=== PATIENT | male | born 1995 | race Caucasian/White ===

== ENCOUNTER → 2019-01-23 13:57 | Outpatient (CLI) | payer OTHER, SELFPAY ==
[2019-01-23 14:16] LABS: Basophils % 0.7 % (0.1-2.0); Eosinophils # 0.1 K/mm3 (0.0-0.4); Eosinophils % 2.5 % (0.1-12.0); Hematocrit 46.7 % (42.0-52.0); Hemoglobin 15.4 g/dL (14.1-18.0); Lymphocytes # 2.1 K/mm3 (0.7-4.5); Lymphocytes % 37.4 % (10-50); Mean Corpuscular HGB Conc 32.9 g/dL (31.8-35.4); Mean Corpuscular Hemoglobin 29.4 pg (27.0-31.2); Mean Corpuscular Volume 89.5 fl (80-94); Monocytes # 0.6 K/mm3 (0.1-1.0); Monocytes % 10.4 % (1.7-9.3); Neutrophils # 2.7 K/mm3 (1.8-7.8); Platelet Count 183 K/mm3 (142-424); Red Blood Count 5.22 M/mm3 (4.60-6.20); Red Cell Distribution Width 13.1 % (11.5-17.5); White Blood Count 5.5 K/mm3 (4.8-10.8)
[2019-01-23 15:02] LABS: Alanine Aminotransferase 69 U/L (12-78); Albumin Level 3.9 gm/dL (3.4-5.0); Alkaline Phosphatase 84 U/L (46-116); Anion Gap 17.1 mEq/L (5-15); Aspartate Amino Transferase 41 U/L (15-37); Bilirubin,Total 0.5 mg/dL (0.2-1.0); Blood Urea Nitrogen 14 mg/dL (7-18); Calcium 9.3 mg/dL (8.5-10.1); Carbon Dioxide 23 mmol/L (21.0-32.0); Chloride 102 mmol/L (98-107); Chol/HDL Ratio 4.8 (1-3.5); Cholesterol 184 mg/dL (140-200); Creatinine,Serum 0.82 mg/dL (0.70-1.30); Estimated Glomerular Filt Rate 116 ml/min (>60); Free T4 (Free Thyroxine) 0.86 ng/dl (0.76-1.46); GFR (African American) 141 ML/MIN (>60); Glucose 81 mg/dL (74-106); HDL Cholesterol 38 mg/dL (27-67); LDL Cholesterol 110 mg/dL (0-130); Potassium 4.1 mmoL/L (3.5-5.1); Sodium 138 mmol/L (136-145); Thyroid Stimulating Hormone 6.48 uIU/ml (0.358-3.740); Total Protein,Serum 7.9 gm/dL (6.4-8.2); Triglycerides 178 mg/dL (30-200); VLDL Cholesterol 36 mg/dL (0-40)
[2019-01-24 07:16] LABS: Hep A Ab, IgM Negative (Negative); Hepatitis B Core Antibody IgM Negative (Negative); Hepatitis B Surface Antigen Negative (Negative)
[2019-01-24 18:04] LABS: Hepatitis C Antibody <0.1 s/co ratio (0.0-0.9); Vitamin D 25 Hydroxy 16.3 ng/mL (30.0-100.0)
== END ==
PROVIDERS: Visit Provider Emergency Medicine
DX: G80.9 Cerebral palsy, unspecified (principal)
CPT/HCPCS: 80053; 80061; 80074; 82652; 84439; 84443; 85025

== ENCOUNTER → 2020-02-09 09:34 | Outpatient (CLI) | payer MEDICAID, SELFPAY ==
[2020-02-09 10:06] LABS: Basophils # 0.1 K/mm3 (0-0.2); Eosinophils # 0.2 K/mm3 (0.0-0.4); Eosinophils % 3.1 % (0.1-12.0); Hematocrit 48.4 % (42.0-52.0); Hemoglobin 16.5 g/dL (14.1-18.0); Lymphocytes # 2.4 K/mm3 (0.7-4.5); Lymphocytes % 46.7 % (10-50); Mean Corpuscular HGB Conc 34.1 g/dL (31.8-35.4); Mean Corpuscular Hemoglobin 32.6 pg (27.0-31.2); Mean Corpuscular Volume 95.4 fl (80-94); Mean Platelet Volume 9.1 fl (7.4-10.4); Monocytes # 0.4 K/mm3 (0.1-1.0); Monocytes % 7.2 % (1.7-9.3); Neutrophils # 2.2 K/mm3 (1.8-7.8); Platelet Count 164 K/mm3 (142-424); Red Blood Count 5.07 M/mm3 (4.60-6.20); Red Cell Distribution Width 12.7 % (11.5-17.5); White Blood Count 5.2 K/mm3 (4.8-10.8)
[2020-02-09 10:28] LABS: Chloride 107 mmol/L (98-107)
[2020-02-09 10:29] LABS: Potassium 4.4 mmoL/L (3.5-5.1); Sodium 138 mmol/L (136-145)
[2020-02-09 10:31] LABS: Alanine Aminotransferase 17 U/L (12-78); Aspartate Amino Transferase 20 U/L (17-59); Blood Urea Nitrogen 10 mg/dl (9-20); Estimated Glomerular Filt Rate 139 ml/min (>60); GFR (African American) 168 ML/MIN (>60)
[2020-02-09 10:32] LABS: Albumin Level 4.2 g/dl (3.5-5.0); Albumin/Globulin Ratio 1.4 (1.1-1.8); Alkaline Phosphatase 69 U/L (38-126); Anion Gap 9.4 mEq/L (5-15); Bilirubin,Total 0.5 mg/dl (0.2-1.3); Calcium 9.6 mg/dl (8.4-10.2); Carbon Dioxide 26 mmol/L (22.0-30.0); Glucose 75 mg/dl (74-100); Total Protein,Serum 7.2 g/dl (6.3-8.2)
[2020-02-09 10:37] LABS: Valproic Acid, (Depakene) 66.2 ug/ml (50-100)
[2020-02-09 11:02] LABS: Thyroid Stimulating Hormone 2.06 uIU/mL (0.465-4.68)
[2020-02-15 10:23] LABS: 1,25 Dihydroxy Vitamin D 86 pg/mL (.); 1,25-Dihydroxy, Vitamin D-2 58 pg/mL (.); 1,25-Dihydroxy, Vitamin D-3 28 pg/mL (.)
== END ==
PROVIDERS: Visit Provider Specialist
DX: G40.909 Epilepsy, unspecified, not intractable, without status epilepticus (principal); R79.89 Other specified abnormal findings of blood chemistry; E55.9 Vitamin D deficiency, unspecified; Z79.899 Other long term (current) drug therapy
CPT/HCPCS: 36415; 80053; 80164; 82652; 84443; 85025

== ENCOUNTER → 2020-02-26 10:00 | Outpatient (CLI) | payer MEDICAID, SELFPAY ==
--- NOTE | 2020-02-26 10:10 | MR_ITS ---
PROCEDURE: MR HEAD/BRAIN WO CON CLINICAL INDICATION: seizures Frequent seizures, Pt states a couple months. Started at age 18, Pt also has cerebral palsy COMPARISON: No exams were available for comparison TECHNIQUE: Routine multiplanar multi echo sequences are performed without gadolinium enhancement. 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 There is no evidence of acute infarction midline shift or mass effect. No intracranial hemorrhage apparent. The cerebellopontine angles, cerebellum, and brainstem have an unremarkable appearance. There is some mild atrophy of the andrea and cerebral peduncles on the right. The pituitary, optic chiasm, and craniocervical junction have an unremarkable appearance. No mastoid effusion or sinus air-fluid level. IMPRESSION: Right-sided open lip schizencephaly Otherwise negative with no acute finding. Dictated by: Eldre Silva MD 02/27/2020 08:26 Electronically signed by Elder Silva MD in [place] 02/27/2020 08:26
== END ==
PROVIDERS: PCP Emergency Medicine; Visit Provider Specialist
DX: G40.909 Epilepsy, unspecified, not intractable, without status epilepticus (principal); E55.9 Vitamin D deficiency, unspecified; R79.89 Other specified abnormal findings of blood chemistry; Z79.899 Other long term (current) drug therapy
CPT/HCPCS: 70551

== ENCOUNTER → 2020-05-06 14:49 | Outpatient (CLI) | payer MEDICAID, SELFPAY ==
--- NOTE | 2020-05-06 14:52 | CT_ITS ---
PROCEDURE: CT HEAD/BRAIN WO CON CLINICAL INDICATION: post traumatic headache and memory loss The of seizures, brain injury dizziness and nausea COMPARISON: MR MR HEAD/BRAIN WO CON from 02/26/2020 TECHNIQUE: Axial images obtained. All CT scans at the facility use one or more dose reduction, viz: automated exposure control, ma/kV adjustment per patient size (including targeted exams where dose is matched to indication, i.e. head), or iterative reconstruction technique. FINDINGS: No midline shift, mass effect, intracranial hemorrhage, hydrocephalus, or extra-axial fluid collection is evident. There is right-sided schizencephaly at the right frontal parietal junction as described previously on the MRI of 02/26/2020. This appears to represent an lip schizencephaly and is not significantly changed. No midline shift or mass effect. No acute intracranial hemorrhage. No acute calvarial fracture the calvarium has an unremarkable appearance. No mastoid effusion. No sinus air-fluid level. IMPRESSION: 1. No change with no acute finding. 2. 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
== END ==
PROVIDERS: PCP Emergency Medicine; Visit Provider Specialist
DX: G44.319 Acute post-traumatic headache, not intractable (principal); R41.3 Other amnesia; W19.XXXA Unspecified fall, initial encounter
CPT/HCPCS: 70450

== ENCOUNTER → 2020-05-12 11:12 | Outpatient (CLI) | payer MEDICAID, SELFPAY ==
[2020-05-12 12:19] LABS: Valproic Acid, (Depakene) 97.8 ug/ml (50-100)
[2020-05-12 13:03] LABS: Vitamin B12 802 pg/mL (239-931)
[2020-05-18 13:18] LABS: 1,25 Dihydroxy Vitamin D 48 pg/mL (.); 1,25-Dihydroxy, Vitamin D-2 34 pg/mL (.); 1,25-Dihydroxy, Vitamin D-3 14 pg/mL (.)
== END ==
PROVIDERS: Visit Provider Specialist
DX: G40.909 Epilepsy, unspecified, not intractable, without status epilepticus (principal); E55.9 Vitamin D deficiency, unspecified; R41.3 Other amnesia
CPT/HCPCS: 36415; 80164; 82607; 82652

== ENCOUNTER 2020-10-13 18:51 | Emergency (ER) | payer MEDICAID, SELFPAY ==
[2020-10-13 19:30] VITALS: BP 139/75; PULSE 83; RESP 14; TEMP 36.6; O2SAT 96; BMI 31.8
--- NOTE | 2020-10-13 19:34 | HMH.EDUTC ---
[facility] Disposition Clinical Impression: Exposure to COVID-19 virus Disposition: Home, Self-Care Condition on Discharge: Good Instructions: Preventing the Spread of Coronavirus Discharge Instructions Additional Instructions: Drink plenty of fluids. Follow up with your regular doctor. GO TO THE ER FOR ANY WORSENING SYMPTOMS Referrals: Evens Santoro MD [Primary Care Provider] - Time of Disposition: 19:42 Medical Decision Making - Medical Records Medical records reviewed: No: I reviewed the patient's medical records. - Ayush Inquiry Pt receiving controlled substance: No Vital Signs: 10/13/20 19:30 10/13/20 19:36 Temperature 98 F 98 F Temperature Source Tympanic Pulse Rate 81 Pulse Rate [Right] 83 Respiratory Rate 14 16 Blood Pressure 130/77 Blood Pressure [Right Arm] 139/75 Blood Pressure Mean [Right Arm] 96 Blood Pressure Source [Right Arm] Automatic Cuff Blood Pressure Position [Right Arm] Sitting 02 Sat by Pulse Oximetry 96 Oxygen Delivery Method Room Air Orders (Tests/Meds): ORDERS Category Date Time Status Covid-19 Nasal PCR ([facility]) Routine Lab 10/13/20 19:20 Received [facility] HPI - General Stated complaint: covid test Time Seen by Provider: 10/13/20 19:35 Mode of Arrival: Ambulatory Source of Information: Patient Limitations: No Limitations Description of Symptoms (Recalled from Triage Doc. by RN): pt needs a covid test for pre op. HEENT Symptoms (Recalled from RN notes): No Resp Symptoms (Recalled from RN notes): No Skin Symptoms (Recalled from RN notes): No MS Symptoms (Recalled from RN notes): No Functional Status (Recalled from RN notes): na - History of Present Illness Provider Complaint: He has surgery scheduled for october 18. He states that he was told to come her to get a covid-19 test before his surgery. He denies any symptoms. - Related Data Previous Rx's Medication Instructions Recorded divalproex 500 mg tablet,extended 1,000 mg .ROUTE BID #150 tab 05/12/20 release 24 hr brivaracetam 100 mg tablet 100 mg PO BID #60 tab 05/19/20 buspirone 10 mg tablet See Rx Instructions .ROUTE 07/10/20 .COMPLEX #180 tab levothyroxine 25 mcg tablet See Rx Instructions .ROUTE 11/29/20 .COMPLEX #90 tab ergocalciferol (vitamin D2) 1,250 See Rx Instructions .ROUTE 09/09/20 mcg (50,000 unit) capsule .COMPLEX #12 cap aripiprazole 10 mg tablet 10 mg PO QHS #30 tab 09/12/20 escitalopram oxalate 20 mg tablet 20 mg PO DAILY #30 tab 09/12/20 Allergies Allergy/AdvReac Type Severity Reaction Status Date / Time No Known Allergies Allergy Verified 10/13/20 19:35 - Worker's Comp Is this a Worker's Comp case?: No [facility] History - Hepatitis A Screen Drug use history?: No High risk sexual behaviors?: No History of sexually transmitted infection?: No Currently employed?: No Childcare worker?: No Do you have indoor plumbing?: Yes Do you have electricity?: Yes Attestation statement:: This patient has been screened for Hepatitis A risk factors. I have reviewed the patient's past medical history: Yes Medical History: Reports:: Anxiety, Depression, Gastroesophageal Reflux Disease(GERD), Migraine, Seizures Other Medical History: Reports: Cataracts, Glaucoma, Other Other Surgeries: Yes: No Previous Surgery, Hernia Repair, Other Amputation: No Fractures: Yes (left pinky finger,rt wrist) Comment: rt eye lens replacement,legally blind lt eye,detached retina. - Social History Smoking Status: Current every day smoker Tobacco Type: cigarettes # Packs/Day (cigarettes): 1 Alcohol Intake: current Alcohol Intake Frequency:: holidays/special occasions only Substance Use Type: marijuana Occupational Status: disabled Housing: apartment Household Members: significant other - Psychiatric History Pschychiatric History:: Reports:: Anxiety, Depression Family Hx:: Other, Heart Attack Comment: seizures ROS Obtained: Yes All systems reviewed & no additional complaints -
[2020-10-13 19:36] VITALS: BP 130/77; PULSE 81; RESP 16; TEMP 36.6
== END 2020-10-13 19:49 | disposition home or self-care (01) ==
PROVIDERS: Emergency Provider Nurse Practitioner Family; PCP Emergency Medicine
DX: Z11.52 Encounter for screening for COVID-19 (principal)
CPT/HCPCS: 99202; G0463; U0003

== ENCOUNTER → 2022-08-16 15:09 | Outpatient (CLI) | payer MEDICAID, SELFPAY ==
--- NOTE | 2022-08-16 15:15 | XR_ITS ---
FINAL REPORT CLINICAL HISTORY: severe back pain following a seizure FINDINGS: CERVICAL SPINE 3 views were obtained. There is no acute fracture. There is no malalignment. The disc spaces are preserved. There is no soft tissue abnormality. A vagal stimulator is seen projecting over the left neck soft tissues. IMPRESSION: No acute bony abnormality. Reviewed, Interpreted and Dictated by Pastor Mckinnon MD Transcribed by Shalini Boyd Authenticated and [facility]
--- NOTE | 2022-08-16 15:15 | XR_ITS ---
FINAL REPORT CLINICAL HISTORY: severe back pain following a seizure FINDINGS: LUMBAR SPINE 2 views were obtained. There is no acute fracture. There is no malalignment. The disc spaces are preserved. There is no soft tissue abnormality. IMPRESSION: No acute bony abnormality. Reviewed, Interpreted and Dictated by Pastor Mckinnon MD Transcribed by Shalini Boyd Authenticated and [facility]
--- NOTE | 2022-08-16 15:15 | XR_ITS ---
FINAL REPORT TECHNIQUE: 3 views CLINICAL HISTORY: severe back pain following a seizure COMPARISON: None FINDINGS: THORACIC SPINE SERIES Three views of the thoracic spine were obtained. There is no fracture present. Spina bifida occulta in the lower thoracic spine, T11-12. There is no malalignment. There are no significant degenerative changes. IMPRESSION: No acute process. Reviewed, Interpreted and Dictated by Pastor Mckinnon MD Transcribed by Carline Newman Authenticated and [facility]
== END ==
PROVIDERS: PCP Emergency Medicine; Visit Provider Specialist
DX: M54.9 Dorsalgia, unspecified (principal); Z96.89 Presence of other specified functional implants
CPT/HCPCS: 72040; 72072; 72100

== ENCOUNTER → 2022-09-10 08:38 | Outpatient (POV) | payer MEDICAID, SELFPAY ==
[2022-09-10 08:54] VITALS: BP 134/71; PULSE 82; RESP 18; O2SAT 97; BMI 31.5
--- NOTE | 2022-09-10 16:39 | EXP.PAIN.OV ---
HPI Data of Consult Patient: new to practice Consult date: 09/10/22 Requesting Physician: Serenity Delacruz APRN Consult Narrative Reason for consult: Neck pain, low back pain, history of spina bifida History of present illness: Mr. Trujillo is a 26 year old male who presents today as a new patient. He is a referral from Dr. Whitaker's office. Today he rates his pain a 6 out of 10. Patient states his pain is all in his neck with radiating symptoms down to his low back. Patient states this has been going on for years and progressively worsened over time. Patient does describe this as a aching, throbbing sensation that is worse with increased activity and range of motion. Patient states that he did have spina bifida as a child and has a significant health history since. Patient states he has cerebral palsy, left eye blindness and seizures. Patient does state that he has tried ibuprofen and Tylenol with no improvement along with heat and ice and topical such as Biofreeze. Patient states he has been to a chiropractor couple of times with minimal improvement and has seen physical therapy approximately 7 years ago. Patient states he does use marijuana for some improvement of his symptoms. Patient is currently on Briviact 100 mg twice a day from an outside provider. Patient denies any side effects from this medication. Patient denies any cardiac or kidney issues. His Ayush is [id number]. Its been reviewed and appropriate. CC: Serenity Delacruz APRN [facility] Disclaimer: The information contained in this section may have been updated after the patient was seen, as this information can be updated by other users. Medical History (Updated 09/10/22 @ 16:45 by Serenity Delacruz APRN) Anxiety Cataracts, bilateral Depression GERD (gastroesophageal reflux disease) Migraines Seizures Surgical History (Updated 09/10/22 @ 08:58 by La Olivares RN) History of hernia surgery Social History (Updated 09/10/22 @ 08:58 by La Olivares RN) Smoking Status: Current every day smoker tobacco type: cigarettes packs per day: 1 alcohol intake: current substance use type: marijuana current occupational status: disabled Travel in the last 8 weeks: None household members: significant other housing: house number of children: 1 Review of Systems Review of Systems Review of systems:: pertinent systems reviewed and negative unless documented below Review of systems (narrative): Review of Systems: General: No recent weight changes, no fever, no sleep disturbances Respiratory: No cough, no shortness of air, no recurring pulmonary infections Cardiovascular/peripheral vascular: No chest pain, no palpitations, no edema, no shortness of breath Gastrointestinal: No new onset incontinence, normal bowel movements reported Genitourinary: No new onset incontinence Musculoskeletal: Neck pain, low back pain Psychiatric: [Normal mood/affect] Neurological: [Denies weakness in extremities], [denies balance issues] Meds Home Medications and Allergies Home Medications Medication Instructions Recorded Confirmed Type ergocalciferol (vitamin D2) 1,250 1,250 mcg PO WEEKLY SUPPLIMENT 05/08/21 09/10/22 History mcg (50,000 unit) capsule aripiprazole 10 mg tablet (Abilify) 10 mg PO QHS MOOD 09/10/22 09/10/22 History brivaracetam 100 mg tablet 100 mg PO BID SEIZURES 09/10/22 09/10/22 History (Briviact) buspirone 10 mg tablet See Rx Instructions .Route 09/10/22 09/10/22 History .COMPLEX MOOD divalproex 500 mg tablet,extended 1,000 mg .Route BID SEIZURES 09/10/22 09/10/22 History release 24 hr escitalopram oxalate 20 mg tablet 20 mg PO DAILY MOOD 09/10/22 09/10/22 History (Lexapro) levothyroxine 25 mcg tablet See Rx Instructions .Route 09/10/22 09/10/22 History .COMPLEX THYROID New Prescriptions to Start Prescriptions: Allergies Allergy/AdvReac Type Severity Reaction Status Date / Time No Known Allergies Allergy Verified
== END ==
PROVIDERS: Visit Provider Nurse Practitioner Family
DX: M54.50 Low back pain, unspecified (principal); M54.2 Cervicalgia; Q76.0 Spina bifida occulta
CPT/HCPCS: 99202; G0463

== ENCOUNTER → 2022-10-18 13:39 | Outpatient (CLI) | payer MEDICAID, SELFPAY ==
--- NOTE | 2022-10-18 13:42 | CT_ITS ---
FINAL REPORT TECHNIQUE: Axial imaging of the lumbar spine was obtained without contrast. Sagittal and coronal reformatted images were also obtained and reviewed. This study was performed with techniques to keep radiation doses as low as reasonably achievable (ALARA). Individualized dose reduction techniques using automated exposure control or adjustment of mA and/or kV according to the patient's size were employed. CLINICAL HISTORY: Bilat LBP x forever , pt states pain is worse on LT side, and pain has recently worsened. NKT. Smoker. COMPARISON: none FINDINGS: There is no fracture. The vertebral alignment is normal. The disc spaces are preserved. L1-L2: No evidence of central canal stenosis or neural foraminal narrowing. L2-L3: No evidence of central canal stenosis or neural foraminal narrowing. L3-L4: Annular disc bulge. No evidence of central canal stenosis or neural foraminal narrowing. L4-L5: Annular disc bulge. No evidence of central canal stenosis or neural foraminal narrowing. L5-S1: Annular disc bulge. Central disc protrusion contacts S1 nerve roots. IMPRESSION: Multilevel degenerative change without acute bony abnormality. Reviewed, Interpreted and Dictated by Kenny Wiley III, MD Transcribed by Carline Newman Authenticated and [facility]
--- NOTE | 2022-10-18 13:42 | CT_ITS ---
FINAL REPORT TECHNIQUE: Axial CT images of the cervical spine were obtained without contrast. Sagittal and coronal reformatted images were also obtained. This study was performed with techniques to keep radiation doses as low as reasonably achievable (ALARA). Individualized dose reduction techniques using automated exposure control or adjustment of mA and/or kV according to the patient's size were employed. CLINICAL HISTORY: Neck pain radiating down bilat arms x forever , NKT. Smoker. COMPARISON: none FINDINGS: There is no evidence of fracture or dislocation. The bony alignment is normal. The disc spaces are preserved. No paraspinous soft tissue abnormality is seen. Limited images of the upper thorax are unremarkable. C2-3: No significant central canal stenosis or neural foraminal narrowing. C3-4: Uncovertebral osteophytes. Mild bilateral neural foraminal narrowing. C4-5: Annular disc bulge. Mild right neural foraminal narrowing. C5-6: Annular disc bulge. Mild left neural foraminal narrowing. C6-7: Annular disc bulge. No significant central canal stenosis or neural foraminal narrowing. C7-T1: No significant central canal stenosis or neural foraminal narrowing. IMPRESSION: Multilevel degenerative disc disease as above. Reviewed, Interpreted and Dictated by Kenny Wiley III, MD Transcribed by Carline Newman Authenticated and [facility]
== END ==
PROVIDERS: PCP Emergency Medicine; Visit Provider Nurse Practitioner Family
DX: M54.2 Cervicalgia (principal); M54.50 Low back pain, unspecified
CPT/HCPCS: 72125; 72131

== ENCOUNTER 2022-10-22 12:43 | Emergency (ER) | payer MEDICAID, SELFPAY ==
[2022-10-22 12:44] VITALS: BP 176/85; PULSE 114; RESP 19; TEMP 36.7; O2SAT 99; BMI 30.8
--- NOTE | 2022-10-22 12:54 | HMH.EDGENADL ---
Discharge Plan Disposition Patient Disposition: Home, Self-Care Prescriptions Prescriptions: No Action ergocalciferol (vitamin D2) 1,250 mcg (50,000 unit) capsule 1,250 mcg PO WEEKLY Label Comments: TAKE ONE CAPSULE BY MOUTH ONCE A WEEK levothyroxine 25 mcg tablet See Rx Instructions .ROUTE .COMPLEX Rx Instructions: TAKE ONE TABLET BY MOUTH EVERY DAY FOR hypothyroid buspirone 10 mg tablet See Rx Instructions .ROUTE .COMPLEX Rx Instructions: TAKE ONE TABLET BY MOUTH TWICE DAILY divalproex 500 mg tablet extended release 24 hr 1,000 mg .ROUTE BID Rx Instructions: 1,000 mg every morning and 1500 mg nightly escitalopram oxalate [Lexapro] 20 mg tablet 20 mg PO DAILY aripiprazole [Abilify] 10 mg tablet 10 mg PO QHS Briviact 100 mg tablet 100 mg PO BID Referrals Follow up/Referrals: Evens Santoro MD [Primary Care Provider] - See instructions Activity Restrictions/Add. Instructions Additional Instructions/Restrictions: Please follow up with your pain clinic regarding her chronic back pain. Return with any lower extremity paralysis numbness between your legs urinary or bowel incontinence or other significant concerns. Clinical Impressions Clinical Impression: Chronic back pain, Sciatica, Ingrown left big toenail Instructions Patient Instructions: DI for Chronic Pain -- Adult Discharge ED Provider: Dakota Bañuelos General Adult HPI General Chief complaint: PAIN Stated complaint: Fall@home 10/15 LT buttox pain, LT leg pain Time Seen by Provider: 10/22/22 12:54 Mode of Arrival: Ambulatory Source of Information: Patient Limitations: No Limitations Description of Symptoms (Recalled from ER Triage Doc. by RN): 26 M presents with left buttock pain and bruising. He reports 3 mechanical falls since September which have resulted in his left buttock staying bruised and hurting. Patient now reports pain, numbness, and tingling to his buttocks on the left side. Patient also adds that he has a left great toe ingrown toenail he would like evaluated as well. History of Present Illness HPI narrative: Patient is a 26-year-old male with a history of epilepsy who presents today as a primary historians also with his fianc?e who gives history. States that he has had chronic back pain originating around his left buttock area and radiating down his left leg intermittently has lightening type sensations that are alleviated by leg movement associated with numbness but always only lasts but a moment and goes back to normal. Family member scared him today and made him think that he might have a blood clot. He denies any ongoing or consistent pain no significant swelling of that leg. No history of any DVT or PE. He currently has no symptoms in the left lower extremity. He also is here because he wants to be evaluated for an ingrown toenail on his left great toe. He had had surgery on this in the past and states that it somewhat was in the past. Its painful but no significant redness or pus coming from the wound from history. Of note he was recently at his pain clinic here at [place] had CT scans to evaluate for spine because I thought he had possible spina bifida and is yet to hear the results of that to follow back up with them for further intervention of his chronic back pain. Related Data Home Medications Medication Instructions Recorded Confirmed ergocalciferol (vitamin D2) 1,250 1,250 mcg PO WEEKLY SUPPLIMENT 05/08/21 09/24/22 mcg (50,000 unit) capsule aripiprazole 10 mg tablet (Abilify) 10 mg PO QHS MOOD 09/10/22 09/24/22 brivaracetam 100 mg tablet 100 mg PO BID SEIZURES 09/10/22 09/24/22 (Briviact) buspirone 10 mg tablet See Rx Instructions .Route 09/10/22 09/24/22 .COMPLEX MOOD divalproex 500 mg tablet,extended 1,000 mg .Route BID SEIZURES 09/10/22 09/24/22 release 24 hr escitalopram oxalate 20 mg tablet 20 mg PO DAILY MOOD 09/10/22 09/24/22 (Lexapro)
--- NOTE | 2022-10-22 13:06 | PC.NURSE ---
Attending at bedside completing procedure on left great toe for ingrown toenail.
[2022-10-22 13:20] VITALS: BP 163/85; PULSE 98; RESP 19; TEMP 36.7; O2SAT 99
== END 2022-10-22 13:21 | disposition home or self-care (01) ==
PROVIDERS: Emergency Provider Student in an Organized Health Care Education/Training Program; PCP Emergency Medicine
DX: G89.29 Other chronic pain (principal); M54.40 Lumbago with sciatica, unspecified side; L60.0 Ingrowing nail; F41.8 Other specified anxiety disorders; H26.9 Unspecified cataract; K21.9 Gastro-esophageal reflux disease without esophagitis; G43.909 Migraine, unspecified, not intractable, without status migrainosus; R56.9 Unspecified convulsions; F17.210 Nicotine dependence, cigarettes, uncomplicated; Z90.49 Acquired absence of other specified parts of digestive tract
CPT/HCPCS: 11765; 99283

== ENCOUNTER → 2022-11-07 13:58 | Outpatient (POV) | payer MEDICAID, SELFPAY ==
[2022-11-07 14:25] VITALS: BP 133/80; PULSE 99; RESP 18; O2SAT 99; BMI 29.7
--- NOTE | 2022-11-07 14:39 | EXP.PAIN.SOA ---
[facility] Pain Management SOAP Note Subjective:: Patient is a pleasant 26-year-old male who presents today for follow-up of CT of cervical and lumbar spine. We are currently treating the patient for low back pain, neck pain, cervical and lumbar radiculopathy symptoms. Today he rates his pain a 2 out of 10. Patient states he continues to have pain in his low back and neck. He does describe this as an aching, throbbing sensation that is worse with increased activity. He does state that he feels like his neck pain is more related to a pulled muscle. He does state this affects his ability to perform activities of daily living such as cooking and cleaning. He does have a history of spina bifida, cerebral palsy, left eye blindness and seizures. He does use [id number] ibuprofen and Tylenol however he has not noticed significant improvement along with heat and ice and Biofreeze. Patient has been to physical therapy and chiropractor in the past however had no additional relief. His Ayush is [id number]. Its been reviewed and appropriate. Review of Systems: General: No recent weight changes, no fever, no sleep disturbances Respiratory: No cough, no shortness of air, no recurring pulmonary infections Cardiovascular/peripheral vascular: No chest pain, no palpitations, no edema, no shortness of breath Gastrointestinal: No new onset incontinence, normal bowel movements reported Genitourinary: No new onset incontinence Musculoskeletal: Low back pain, neck pain Psychiatric: [Normal mood/affect] Neurological: [Denies weakness in extremities], [denies balance issues] Objective:: Physical Exam: General: Alert and oriented x3, no acute distress, pleasant and cooperative Lungs: Respirations even and unlabored, symmetrical chest expansion Eyes: PERRL Musculoskeletal: Flexion and extension of lumbar [spine] somewhat guarded secondary to pain, [antalgic gait noted] Neurological: Speech clear, no gross sensory deficit FINAL REPORT TECHNIQUE: Axial CT images of the cervical spine were obtained without contrast. Sagittal and coronal reformatted images were also obtained. This study was performed with techniques to keep radiation doses as low as reasonably achievable (ALARA). Individualized dose reduction techniques using automated exposure control or adjustment of mA and/or kV according to the patient's size were employed. CLINICAL HISTORY: Neck pain radiating down bilat arms x forever , NKT. Smoker. COMPARISON: none FINDINGS: There is no evidence of fracture or dislocation. The bony alignment is normal. The disc spaces are preserved.? No paraspinous soft tissue abnormality is seen. Limited images of the upper thorax are unremarkable.? C2-3:? No significant central canal stenosis or neural foraminal narrowing.? ? C3-4: Uncovertebral osteophytes.? Mild bilateral neural foraminal narrowing.? ? C4-5:? Annular disc bulge.? Mild right neural foraminal narrowing.? ? C5-6:? Annular disc bulge.? Mild left neural foraminal narrowing.? ? C6-7: Annular disc bulge.? No significant central canal stenosis or neural foraminal narrowing.? ? C7-T1:? No significant central canal stenosis or neural foraminal narrowing. IMPRESSION: Multilevel degenerative disc disease as above. Reviewed, Interpreted and Dictated by Kenny Wiley III, MD Transcribed by Carline Newman Authenticated and [facility] FINAL REPORT TECHNIQUE: Axial imaging of the lumbar spine was obtained without contrast. Sagittal and coronal reformatted images were also obtained and reviewed.? This study was performed with techniques to keep radiation doses as low as reasonably achievable (ALARA). Individualized dose reduction techniques using automated exposure control or adjustment of mA and/or kV according to the patient's size were employed. CLINICAL HISTORY: Bilat? LBP x? forever , pt states pain is worse on
== END ==
PROVIDERS: PCP Emergency Medicine; Visit Provider Nurse Practitioner Family
DX: M51.16 Intervertebral disc disorders with radiculopathy, lumbar region (principal); M50.10 Cervical disc disorder with radiculopathy, unspecified cervical region
CPT/HCPCS: 99212; G0463

== ENCOUNTER 2022-11-20 12:58 | Day surgery (SDC) | payer MEDICAID, SELFPAY ==
[2022-11-20 13:12] VITALS: BP 145/72; PULSE 94; RESP 18; TEMP 36.3; O2SAT 99; BMI 31.0
[2022-11-20 13:16] VITALS: BP 158/92; PULSE 104; RESP 18; O2SAT 98
[2022-11-20 13:17] VITALS: BP 158/92; PULSE 104; RESP 18; O2SAT 98
--- NOTE | 2022-11-20 13:19 | EXP.PAIN.PRO ---
Procedure Date: 11/20/22 Time: 13:10 Anesthesiologist:: Kimo Boo CRNA Complications:: None Pre-procedure Diagnosis:: Degenerative disc disease lumbar spine multilevels. Lumbar radiculopathy Post-procedure Diagnosis:: Same. Indications for Procedure:: Patient is a pleasant 26-year-old male that comes our clinic today for lumbar epidural steroid injections L5-S1 level. He complains of low back pain with some hip and leg radicular symptoms at times. He rates his pain 6/10. Procedure Details:: Procedure: Lumbar epidural steroid injection under fluoroscopy Informed consent was obtained and the risks and benefits of the procedure were explained to the patient. The patient was taken to the procedure room and noninvasive monitors placed, including noninvasive blood pressure cuff and pulse oximeter. The back was viewed using C-arm Fluoroscopy and prepped using Chloraprep as a cleansing solution and the L5-S1 interspace was palpated. Skin and subcutaneous tissues were anesthetized using lidocaine 1.5% and a 25-gauge needle. After this, an 18-gauge Touhy epidural needle was placed into the L5-S1 interspace and advanced using fluoroscopic guidance and loss of resistance to air until the epidural space was encountered. After confirmation of needle placement in the epidural space, with dye, a solution containing normal saline, 3 mL and Depo-Medrol 80 mg were incrementally injected into the lumbar epidural space. The patient tolerated the procedure well with no complications. The patient was observed in the Pain Clinic and then discharged home neurologically intact. Plan and Disposition:: Patient was discharged without incident
[2022-11-20 13:20] VITALS: BP 145/72; PULSE 103; RESP 18; O2SAT 99
== END 2022-11-20 13:20 | disposition home or self-care (01) ==
PROVIDERS: PCP Emergency Medicine; Visit Provider Nurse Anesthetist, Certified Registered
DX: M51.16 Intervertebral disc disorders with radiculopathy, lumbar region (principal)
CPT/HCPCS: 62323; J1040

== ENCOUNTER → 2022-12-05 14:05 | Outpatient (POV) | payer MEDICAID, SELFPAY ==
--- NOTE | 2022-12-05 14:15 | EXP.PAIN.SOA ---
[facility] Pain Management SOAP Note Subjective:: Patient is a pleasant 27-year-old male who presents today for follow-up lumbar epidural steroid injection of L5-S1 on 11/20/2022.? We are currently treating the patient for low back pain, neck pain, Degenerative disc disease of cervical and lumbar spine with cervical and lumbar radiculopathy symptoms, multilevel disc bulges, neuroforaminal narrowing.? Today he rates his pain a 5 out of 10.? Patient states he did have moderate improvement with this injection. He states it took a couple days to really kick in however he did notice significant improvement lasting a couple of weeks. Today he does state that he is back to his baseline. Patient does continue to have issues with seizures and is scheduled to see his neurologist next month. Patient does state that he occasionally smokes marijuana to help with his glaucoma and other pain symptoms. He is requesting information on the medical marijuana at today's visit. He does continue to have pain in his low back as well as his neck. At our last visit we did discuss about possibly doing cervical epidurals as well however today he states his back is more bothersome than his neck. He is interested in repeating his previous injection. He does describe this as an aching, throbbing sensation that is worse with increased activity.? He does state this affects his ability to perform activities of daily living such as cooking and cleaning.? He does have a history of spina bifida, cerebral palsy, left eye blindness.? He has tried wyev-ykk-johsnog ibuprofen and Tylenol along with topicals and heat and ice with minimal improvement. He is prescribed Briviact 100 mg twice a day from Dr. Whitaker's office. Patient denies any side effects from this medication. His Ayush is [id number].? Its been reviewed and appropriate. Review of Systems: General: No recent weight changes, no fever, no sleep disturbances Respiratory: No cough, no shortness of air, no recurring pulmonary infections Cardiovascular/peripheral vascular: No chest pain, no palpitations,? no edema, no shortness of breath Gastrointestinal: No new onset incontinence, normal bowel movements reported Genitourinary: No new onset incontinence Musculoskeletal: Low back pain, neck pain Psychiatric: [Normal mood/affect] Neurological: [Denies weakness in extremities], [denies balance issues] Objective:: Physical Exam: General: Alert and oriented x3, no acute distress, pleasant and cooperative Lungs: Respirations even and unlabored, symmetrical chest expansion Eyes: PERRL Musculoskeletal: Flexion and extension of lumbar [spine] somewhat guarded secondary to pain, [antalgic gait noted] Neurological: Speech clear, no gross sensory deficit Assessment:: Low back pain, neck pain, Degenerative disc disease of cervical and lumbar spine with cervical and lumbar radiculopathy symptoms, multilevel disc bulges, neuroforaminal narrowing Plan:: Patient is experiencing significant pain in his low back with limited range of motion of his lumbar spine. I have discussed with the patient that he may benefit from a repeat lumbar epidural steroid injection. Risk and benefits were discussed with the patient and he would like to proceed forward with this plan of care. Patient is not on any blood thinners. I have counseled the patient to talk to his primary care doctor regarding the medical marijuana use and if he is prescribed this medication our office will want open communication with the plan of care and overall goals. I will also send in a prescription of methocarbamol 750 mg at bedtime and provide a 2-week supply of this medication. Patient will be scheduled for a LESI L5-S1. Patient has been instructed to contact the clinic with any concerns before the next appointment. Dr. Villalpando has reviewed this note and agrees with this plan of care. This note was dictated using voice recognition software and make contain errors or omissions. [facility] Disclaimer:
[2022-12-05 14:18] VITALS: BP 109/73; PULSE 87; RESP 18; O2SAT 96; BMI 29.4
== END | disposition home or self-care (01) ==
PROVIDERS: PCP Emergency Medicine; Visit Provider Nurse Practitioner Family
DX: M51.16 Intervertebral disc disorders with radiculopathy, lumbar region (principal); M50.10 Cervical disc disorder with radiculopathy, unspecified cervical region
CPT/HCPCS: 99212; G0463

== ENCOUNTER 2023-01-15 10:53 | Day surgery (SDC) | payer MEDICAID, SELFPAY ==
[2023-01-15 11:03] VITALS: BP 134/72; PULSE 73; RESP 16; TEMP 36.5; O2SAT 100; BMI 29.0
[2023-01-15 11:06] VITALS: BP 155/93; PULSE 89; RESP 18; O2SAT 97
[2023-01-15 11:07] VITALS: BP 155/93; PULSE 89; RESP 18; O2SAT 97
[2023-01-15 11:17] VITALS: BP 112/54; PULSE 63; RESP 18; O2SAT 100
--- NOTE | 2023-01-15 11:18 | EXP.PAIN.PRO ---
Procedure Date: 01/15/23 Time: 11:10 Anesthesiologist:: Kimo Boo CRNA Complications:: None Pre-procedure Diagnosis:: Degenerative disc lumbar spine multilevels. Lumbar radiculopathy Post-procedure Diagnosis:: Same. Indications for Procedure:: Very pleasant 27-year-old male comes our clinic today for a second lumbar epidural steroid injection at the L5-S1 level. Patient describes low back pain as constant, dull, aching. Patient also complains of bilateral hip and leg radicular symptoms. He rates his pain 6/10. Procedure Details:: Informed consent was obtained and the risks and benefits of the procedure were explained to the patient. The patient was taken to the procedure room and noninvasive monitors placed, including noninvasive blood pressure cuff and pulse oximeter. The back was viewed using C-arm Fluoroscopy and prepped using Chloraprep as a cleansing solution and the L5-S1 interspace was palpated. Skin and subcutaneous tissues were anesthetized using lidocaine 1.5% and a 25-gauge needle. After this, an 18-gauge Touhy epidural needle was placed into the L5-S1 interspace and advanced using fluoroscopic guidance and loss of resistance to air until the epidural space was encountered. After confirmation of needle placement in the epidural space, with dye, a solution containing normal saline, 3 mL and Depo-Medrol 80 mg were incrementally injected into the lumbar epidural space. The patient tolerated the procedure well with no complications. Plan and Disposition:: Patient was discharged without incident.
== END 2023-01-15 11:17 | disposition home or self-care (01) ==
PROVIDERS: PCP Emergency Medicine; Visit Provider Nurse Anesthetist, Certified Registered
DX: M51.16 Intervertebral disc disorders with radiculopathy, lumbar region (principal)
CPT/HCPCS: 62323; J1040

== ENCOUNTER → 2023-01-30 12:58 | Outpatient (POV) | payer MEDICAID, SELFPAY ==
--- NOTE | 2023-01-30 13:05 | EXP.PAIN.SOA ---
[facility] Pain Management SOAP Note Subjective:: Patient is a pleasant 27-year-old male who presents today for follow-up of lumbar epidural steroid injection of L5-S1 on 01/15/2023.? We are currently treating the patient for low back pain, neck pain, Degenerative disc disease of cervical and lumbar spine with cervical and lumbar radiculopathy symptoms, multilevel disc bulges, neuroforaminal narrowing.? Today he rates his pain a 8 out of 10 and states that the injection did provide 50% relief however it only lasted about 2 days.? He does state that he is back to his baseline and denies any new trauma or injury. He does state he continues to have back and neck pain and states that they are very bothersome. He does state that he is not saw his neurologist yet but will be soon. He does have a history of seizures, spina bifida, cerebral palsy, and left eye blindness.? Patient states he will occasionally still use marijuana and it does help with his overall back pain. At our last visit we did discuss the medical marijuana card and he states today that he has not went back and talk to his primary care doctor. He states that he does typically see more like a pediatric doctor and that he does not think that he would do the medical marijuana cards. He states he does also have more symptoms into his left leg that he describes as a sharp tingling sensation that is worse with increased activity. He has tried mope-yjy-homiyjy Tylenol and ibuprofen with no additional relief. He is prescribed Briviact 100 mg twice a day from Dr. Whitaker's office.? Patient denies any side effects from this medication.? His Ayush is [id number].? Its been reviewed and appropriate. Review of Systems: General: No recent weight changes, no fever, no sleep disturbances Respiratory: No cough, no shortness of air, no recurring pulmonary infections Cardiovascular/peripheral vascular: No chest pain, no palpitations,? no edema, no shortness of breath Gastrointestinal: No new onset incontinence, normal bowel movements reported Genitourinary: No new onset incontinence Musculoskeletal: Low back pain, neck pain Psychiatric: [Normal mood/affect] Neurological: [Denies weakness in extremities], [denies balance issues] Objective:: Physical Exam: General: Alert and oriented x3, no acute distress, pleasant and cooperative Lungs: Respirations even and unlabored, symmetrical chest expansion Eyes: PERRL Musculoskeletal: Flexion and extension of lumbar [spine] somewhat guarded secondary to pain, [antalgic gait noted] Neurological: Speech clear, no gross sensory deficit Assessment:: Degenerative disc disease of cervical and lumbar spine with cervical and lumbar radiculopathy symptoms, multilevel disc bulges, neuroforaminal narrowing, low back pain, neck pain Plan:: Patient continues to experience significant pain in his low back that he does get significant relief with the epidural injections however only lasting short-term. I will order the patient a compounding cream during today's visit. I have discussed with the patient in the future that he may benefit from a left transforaminal epidural steroid injection however at this time he would like to wait. I have also counseled the patient that we can try diclofenac 75 mg twice daily however he would also like to wait on this as well. I have discussed with the patient that it may be beneficial to establish a new primary care provider so he can discuss the possibility of medical marijuana in the future. Patient will follow-up in clinic in 1 month for reevaluation of symptoms and plan of care. Patient has been instructed to contact the clinic with any concerns before the next appointment. Dr. Villalpando has reviewed this note and agrees with this plan of care. This note was dictated using voice recognition software and make contain errors or omissions. [facility] Disclaimer: The information contained in this section may have been updated after the patient was seen, as this information
[2023-01-30 13:27] VITALS: BP 136/100; PULSE 108; RESP 17; O2SAT 96; BMI 28.7
== END ==
PROVIDERS: PCP Emergency Medicine; Visit Provider Nurse Practitioner Family
DX: M50.10 Cervical disc disorder with radiculopathy, unspecified cervical region (principal); M51.16 Intervertebral disc disorders with radiculopathy, lumbar region
CPT/HCPCS: 99212; G0463

== ENCOUNTER 2023-08-02 16:07 | Emergency (ER) | payer MEDICAID, SELFPAY ==
[2023-08-02 16:08] VITALS: BP 134/75; PULSE 128; RESP 20; TEMP 37.4; O2SAT 98; BMI 25.8
--- NOTE | 2023-08-02 16:42 | CT_ITS ---
PROCEDURE INFORMATION: Exam: CT Thoracic Spine Without Contrast Exam date and time: 08/02/2023 4:55 PM Age: 27 years old Clinical indication: Injury or trauma; Fall; Additional info: Fever, fall with extension injury spine TECHNIQUE: Imaging protocol: Computed tomography of the thoracic spine without contrast. Radiation optimization: All CT scans at this facility use at least one of these dose optimization techniques: automated exposure control; mA and/or kV adjustment per patient size (includes targeted exams where dose is matched to clinical indication); or iterative reconstruction. REPORTING DATA: Count of CT and Cardiac NM exams in prior 12 months: This patient has received 2 known CTs and 0 known cardiac nuclear medicine studies in the 12 months prior to the current study. COMPARISON: CR XR THORACIC SPINE 3V 08/16/2022 3:21 PM FINDINGS: Bones/joints: Multiple Schmorl's nodes are present, possibly due to underlying Scheuermann's disease. No acute thoracic spine fracture is identified. There is no definite spinal canal stenosis. Soft tissues: Unremarkable. Lungs: Two nonspecific 5 mm pulmonary nodules are noted in the right upper lobe. For patients at low risk (minimal or absent history of smoking and of other known risk factors), no routine follow-up is indicated. For patients at high risk (history of smoking or of other known risk factors), consider optional CT Chest at 12 months. (Reference: Vik) IMPRESSION: 1. No acute abnormality. 2. Chronic findings as discussed above. REFERENCES: Vik Trammell et al. Guidelines for Management of Incidental Pulmonary Nodules Detected on CT Images: From the Fleischner Society 2017. Radiology. 2017;284(1):228-243.
--- NOTE | 2023-08-02 16:42 | CT_ITS ---
PROCEDURE INFORMATION: Exam: CT Lumbar Spine Without Contrast Exam date and time: 08/02/2023 4:59 PM Age: 27 years old Clinical indication: Injury or trauma; Fall; Additional info: Fever, fall with extension injury spine TECHNIQUE: Imaging protocol: Computed tomography of the lumbar spine without contrast. Radiation optimization: All CT scans at this facility use at least one of these dose optimization techniques: automated exposure control; mA and/or kV adjustment per patient size (includes targeted exams where dose is matched to clinical indication); or iterative reconstruction. REPORTING DATA: Count of CT and Cardiac NM exams in prior 12 months: This patient has received 2 known CTs and 0 known cardiac nuclear medicine studies in the 12 months prior to the current study. COMPARISON: CT LUMBAR SPINE WO CON 10/18/2022 1:58 PM FINDINGS: Bones/joints: No acute fracture. Normal alignment. No significant disc bulge or herniation. No severe spinal canal stenosis. No significant neural foraminal narrowing. Soft tissues: Unremarkable. IMPRESSION: No acute findings.
--- NOTE | 2023-08-02 16:44 | HMH.EDGENADL ---
Discharge Plan Disposition Patient Disposition: Home, Self-Care Prescriptions Prescriptions: New methocarbamol 1,000 mg tablet 1,000 mg PO Q8H PRN (Reason: back spasm) Qty: 12 0RF No Action ergocalciferol (vitamin D2) 1,250 mcg (50,000 unit) capsule 1,250 mcg PO WEEKLY Patient Comments: TAKE ONE CAPSULE BY MOUTH ONCE A WEEK Briviact 100 mg tablet 100 mg PO BID MDD 200 mg Qty: 60 5RF Rx Instructions: 100 mg p.o. twice daily methocarbamol 750 mg tablet 750 mg PO HS desvenlafaxine succinate [Pristiq] 50 mg tablet extended release 24 hr 50 mg PO DAILY levothyroxine 25 mcg tablet See Rx Instructions .ROUTE .COMPLEX Rx Instructions: TAKE ONE TABLET BY MOUTH EVERY DAY FOR hypothyroid buspirone 10 mg tablet See Rx Instructions .ROUTE .COMPLEX Rx Instructions: TAKE ONE TABLET BY MOUTH TWICE DAILY divalproex 500 mg tablet extended release 24 hr 1,000 mg .ROUTE BID Rx Instructions: 1,000 mg every morning and 1500 mg nightly escitalopram oxalate [Lexapro] 20 mg tablet 20 mg PO DAILY aripiprazole [Abilify] 10 mg tablet 10 mg PO QHS Referrals Follow up/Referrals: Provider,Referral, MD [Primary Care Provider] - See instructions Activity Restrictions/Add. Instructions Additional Instructions/Restrictions: At this time it was felt you are safe to be discharged home. If new or worsening symptoms please do not hesitate to return the emergency department. If symptoms persist please follow-up with your family doctor as you are able. Please take your medications as prescribed. Clinical Impressions Clinical Impression: Acute low back pain due to trauma, COVID-19 Instructions Patient Instructions: Fever of Unknown Origin Discharge ED Provider: Betito Ace General Adult HPI General Chief complaint: Fever Stated complaint: lower back pain, fever Time Seen by Provider: 08/02/23 16:10 Mode of Arrival: Ambulatory Source of Information: Patient Limitations: No Limitations Description of Symptoms (Recalled from ER Triage Doc. by RN): pt started havinig middle low back pain last night at bed time and then today started running a fever at 1230 at home of 101.1. pt took tylenol last at 1300 History of Present Illness HPI narrative: Patient is 27-year-old male with past medical history of cerebral palsy, seizures on antiepileptics who presents emergency department for evaluation of back pain and fever. Tmax 101.1 ?F. Significant other works at long-term with COVID contacts. No significant respiratory symptoms. He did fall last night with extension injury to his thoracolumbar spine resulting in midline pain causing him to present here for continued evaluation. Denies abdominal pain, chest pain, urinary or bowel incontinence, other acute complaints at this time. Related Data Home Medications Medication Instructions Recorded Confirmed ergocalciferol (vitamin D2) 1,250 1,250 mcg PO WEEKLY SUPPLIMENT 05/08/21 01/30/23 mcg (50,000 unit) capsule aripiprazole 10 mg tablet (Abilify) 10 mg PO QHS MOOD 09/10/22 01/30/23 buspirone 10 mg tablet See Rx Instructions .Route 09/10/22 01/30/23 .COMPLEX MOOD divalproex 500 mg tablet,extended 1,000 mg .Route BID SEIZURES 09/10/22 01/30/23 release 24 hr escitalopram oxalate 20 mg tablet 20 mg PO DAILY MOOD 09/10/22 01/30/23 (Lexapro) levothyroxine 25 mcg tablet See Rx Instructions .Route 09/10/22 01/30/23 .COMPLEX THYROID desvenlafaxine succinate 50 mg 50 mg PO DAILY . 01/15/23 01/30/23 tablet,extended release 24 hr (Pristiq) methocarbamol 750 mg tablet 750 mg PO HS . 01/15/23 01/30/23 Previous Rx's Medication Instructions Recorded brivaracetam 100 mg tablet 100 mg PO BID SEIZURES #60 tabs 11/20/22 (Briviact) methocarbamol 1,000 mg tablet 1,000 mg PO Q8H PRN back spasm #12 08/02/23 tabs Allergies Allergy/AdvReac Type Severity Reaction Status Date / Time No K
[2023-08-02 17:02] LABS: Basophils # 0.1 K/mm3 (0-0.2); Basophils % 1.3 % (0.1-2.0); Eosinophils # 0.1 K/mm3 (0.0-0.4); Eosinophils % 2.7 % (0.1-12.0); Hematocrit 46.6 % (42.0-52.0); Hemoglobin 16.4 g/dL (14.1-18.0); Lymphocytes # 0.5 K/mm3 (0.7-4.5); Mean Corpuscular HGB Conc 35.1 g/dL (31.8-35.4); Mean Corpuscular Hemoglobin 31.2 pg (27.0-31.2); Mean Platelet Volume 8.4 fl (7.4-10.4); Monocytes # 0.6 K/mm3 (0.1-1.0); Monocytes % 11.2 % (1.7-9.3); Neutrophils # 3.9 K/mm3 (1.8-7.8); Neutrophils % 74.8 % (37.0-80.0); Platelet Count 176 K/mm3 (142-424); Red Blood Count 5.24 M/mm3 (4.60-6.20); Red Cell Distribution Width 13.3 % (11.5-17.5); White Blood Count 5.2 K/mm3 (4.8-10.8)
[2023-08-02 17:18] LABS: Alanine Aminotransferase 26 U/L (12-78); Albumin Level 5.2 g/dl (3.5-5.0); Albumin/Globulin Ratio 1.4 (1.1-1.8); Alkaline Phosphatase 90 U/L (38-126); Aspartate Amino Transferase 36 U/L (17-59); Bilirubin,Total 0.7 mg/dl (0.2-1.3); Blood Urea Nitrogen 9 mg/dl (9-20); Calcium 9.6 mg/dl (8.4-10.2); Carbon Dioxide 21 mmol/L (22.0-30.0); Chloride 103 mmol/L (98-107); Creatinine Clearance Estimated 160 mL/min (50-200); Estimated Glomerular Filt Rate 116 ml/min (>60); GFR (African American) 140 ML/MIN (>60); Globulin 3.8 g/dL (1.3-3.2); Glucose 97 mg/dl (74-100); Potassium 3.5 mmoL/L (3.5-5.1)
[2023-08-02 17:24] LABS: C-Reactive Protein 10.9 mg/L (0-4)
[2023-08-02 17:43] VITALS: PULSE 110; O2SAT 96
[2023-08-02 17:47] LABS: Influenza A, PCR Not Detected (NotDetected); Influenza B, PCR Not Detected (NotDetected)
[2023-08-02 17:47] LABS: Anion Gap 14.5 mEq/L (5-15); Sodium 135 mmol/L (136-145)
[2023-08-02 18:25] VITALS: BP 134/75; PULSE 110; RESP 20; TEMP 37.1; O2SAT 96
[2023-08-02 18:29] LABS: Coronavirus 19, PCR Detected (NotDetected)
== END 2023-08-02 18:26 | disposition home or self-care (01) ==
PROVIDERS: Emergency Provider Emergency Medicine
DX: U07.1 COVID-19 (principal); R50.9 Fever, unspecified; M54.6 Pain in thoracic spine; F17.210 Nicotine dependence, cigarettes, uncomplicated; K21.9 Gastro-esophageal reflux disease without esophagitis; G80.9 Cerebral palsy, unspecified; G40.909 Epilepsy, unspecified, not intractable, without status epilepticus; W19.XXXA Unspecified fall, initial encounter
CPT/HCPCS: 72128; 72131; 80053; 85025; 86140; 87636; 96374; 96375; 99285; J0131

== ENCOUNTER 2023-10-25 21:28 | Emergency (ER) | payer MEDICAID, SELFPAY ==
--- NOTE | 2023-10-25 21:49 | XR_ITS ---
PROCEDURE INFORMATION: Exam: XR Left Ribs with PA Chest Exam date and time: 10/25/2023 9:54 PM Age: 27 years old Clinical indication: Injury or trauma; Fall; Rib area, left side; Blunt trauma; Additional info: L posterior rib pain after fall TECHNIQUE: Imaging protocol: Radiologic exam of the left ribs with PA chest. Views: 3 views COMPARISON: CT THORACIC SPINE WO CON 08/02/2023 4:55 PM FINDINGS: Lungs: Unremarkable. No consolidation. Pleural spaces: Unremarkable. No pleural effusion. No pneumothorax. Heart/Mediastinum: Unremarkable. No cardiomegaly. Bones/joints: Unremarkable. IMPRESSION: No acute findings.
[2023-10-25 21:55] VITALS: BP 124/82; PULSE 120; RESP 20; TEMP 36.8; O2SAT 98; BMI 25.8
[2023-10-25] MEDS: KETOROLAC 30MG/ML VIAL 15 MG IM (22:03)
--- NOTE | 2023-10-25 22:04 | ED_ITS ---
Discharge Plan Disposition Patient Disposition: Home, Self-Care Prescriptions Prescriptions: No Action ergocalciferol (vitamin D2) 1,250 mcg (50,000 unit) capsule 1,250 mcg PO WEEKLY Patient Comments: TAKE ONE CAPSULE BY MOUTH ONCE A WEEK Briviact 100 mg tablet 100 mg PO BID MDD 200 mg Qty: 60 5RF Rx Instructions: 100 mg p.o. twice daily methocarbamol 750 mg tablet 750 mg PO HS desvenlafaxine succinate [Pristiq] 50 mg tablet extended release 24 hr 50 mg PO DAILY levothyroxine 25 mcg tablet See Rx Instructions .ROUTE .COMPLEX Rx Instructions: TAKE ONE TABLET BY MOUTH EVERY DAY FOR hypothyroid buspirone 10 mg tablet See Rx Instructions .ROUTE .COMPLEX Rx Instructions: TAKE ONE TABLET BY MOUTH TWICE DAILY divalproex 500 mg tablet extended release 24 hr 1,000 mg .ROUTE BID Rx Instructions: 1,000 mg every morning and 1500 mg nightly escitalopram oxalate [Lexapro] 20 mg tablet 20 mg PO DAILY aripiprazole [Abilify] 10 mg tablet 10 mg PO QHS methocarbamol 1,000 mg tablet 1,000 mg PO Q8H PRN (Reason: back spasm) Qty: 12 0RF Referrals Follow up/Referrals: Shar Oliva APRN [Primary Care Provider] - See instructions Activity Restrictions/Add. Instructions Additional Instructions/Restrictions: Call your family doctor to establish care for this visit to the emergency department and schedule follow-up within 48 hours to ensure improvement. If you have any worsening of your condition or any other concerning signs or symptoms, return to the emergency department or your primary care doctor for further evaluation. Take Tylenol 1000 mg every 6 hours (4 times daily) and ibuprofen 400 mg every 6 hours (4 times daily) as needed with food and water to prevent GI upset and kidney damage. Clinical Impressions Clinical Impression: Seizures, Left-sided chest wall pain Discharge ED Provider: Sumanth Joseph General Adult HPI General Chief complaint: Fall Stated complaint: AO 10/24- 12:30 injury lower back Time Seen by Provider: 10/25/23 21:33 Mode of Arrival: Wheelchair Source of Information: Patient Limitations: Physical Limitations Description of Symptoms (Recalled from ER Triage Doc. by RN): Patient states he fell at home around 1 this afternoon from a standing positin and hit the window seal on his left side. Complaints of pain in middle of back and left rib History of Present Illness HPI narrative: This is a 27-year-old male with history of cerebral palsy, seizure disorder with multiple seizures per month presenting with left rib pain. Patient states that he had a seizure today. He fell backward, hit the windowsill. No loss of consciousness at that time. Patient did not hit his head. Has been complaining of severe posterior lateral chest pain since that time. Related Data Home Medications Medication Instructions Recorded Confirmed ergocalciferol (vitamin D2) 1,250 1,250 mcg PO WEEKLY SUPPLIMENT 05/08/21 01/30/23 mcg (50,000 unit) capsule aripiprazole 10 mg tablet (Abilify) 10 mg PO QHS MOOD 09/10/22 01/30/23 buspirone 10 mg tablet See Rx Instructions .Route 09/10/22 01/30/23 .COMPLEX MOOD divalproex 500 mg tablet,extended 1,000 mg .Route BID SEIZURES 09/10/22 01/30/23 release 24 hr escitalopram oxalate 20 mg tablet 20 mg PO DAILY MOOD 09/10/22 01/30/23 (Lexapro) levothyroxine 25 mcg tablet See Rx Instructions .Route 09/10/22 01/30/23 .COMPLEX THYROID desvenlafaxine succinate 50 mg 50 mg PO DAILY . 01/15/23 01/30/23 tablet,extended release 24 hr (Pristiq) methocarbamol 750 mg tablet 750 mg PO HS . 01/15/23 01/30/23 Previous Rx's Medication Instructions Recorded brivaracetam 100 mg tablet 100 mg PO BID SEIZURES #60 tabs 11/20/22 (Briviact) methocarbamol 1,000 mg tablet 1,000 mg PO Q8H PRN back spasm #12 08/02/23 tabs Allergies Allergy/AdvReac Type Severity Reaction Status Date / Time No Known Allergies Allergy Verified 01/04/23 10:46 [facility] Disclaimer: The information contained in this section may have been updated after the patient was seen, as this information can be updated by other users. Medical History Anxiety Cataracts, bilateral Depression GERD (gastroesophageal reflux disease) Migraines Seizures Surgical History History of hernia surgery Status post VNS (vagus nerve stimulator) placement Family History Other No significant family history Social History Smoking Status: Current every day smoker tobacco type: cigarettes packs per day: 1 alcohol intake: current substance use type: marijuana current occupational status: disabled Travel in the last 8 weeks: None household members: significant other housing: house number of children: 1 ROS Obtained: Yes All systems reviewed & no additional complaints except as documented Physical Exam General General appearance: alert and in no apparent distress Head Head exam: atraumatic and normocephalic Eye Eye exam: Present normal appearance, PERRL and EOMI ENT ENT exam: Present mucous membranes moist Neck Neck exam: Present normal inspection, full ROM and trachea midline Chest Chest inspection: Present tenderness (Posterior lateral chest wall no outward signs of injury) Respiratory Respiratory exam: Present normal lung sounds bilaterally; Absent respiratory distress, wheezes, stridor, accessory muscle use or prolonged expiratory phase Cardiovascular Cardiovascular exam: Present normal rhythm and tachycardia Abdominal Exam Abdominal exam: Present soft; Absent distention, tenderness, guarding, rebound or rigidity Extremities Exam Extremities exam: Absent edema Neurological Exam Neurological exam: Present alert, oriented X3, CN II-XII intact and normal gait; Absent motor sensory deficit Skin Skin exam: Present warm and dry; Absent diaphoresis or erythema Medical Decision Making Medical Records Medical records reviewed: Yes I reviewed the patient's medical records. Ayush Inquiry Pt receiving controlled substance: No Ayush was queried for this patient: No Vital Signs: 10/25/23 21:55 10/25/23 22:56 Temperature 98.2 F 98.2 F Temperature Source Oral Oral Pulse Rate 105 H Pulse Rate [Left Radial] 120 H Respiratory Rate 20 18 Blood Pressure 125/72 Blood Pressure [Right Arm] 124/82 Blood Pressure Mean [Right Arm] 96 02 Sat by Pulse Oximetry 98 Oxygen Delivery Method Room Air Orders (Tests/Meds): ED MEDICATIONS Discontinued Medications Generic Name Dose Route Start Last Admin Trade Name Freq PRN Reason Stop Dose Admin Ketorolac Tromethamine 15 mg 10/25/23 21:49 10/25/23 22:02 Ketorolac 30mg/Ml Vial IV 10/25/23 21:50 Not Given ONCE ONE Ketorolac Tromethamine 15 mg 10/25/23 22:02 10/25/23 22:03 Ketorolac 30mg/Ml Vial IM 10/25/23 22:03 15 mg ONCE ONE Administration ORDERS Category Date Time Status XR ribs LT min 3V w CXR1V Stat Exams 10/25/23 21:49 Completed Medical Decision Narrative: This is a 27-year-old male with history of cerebral palsy, seizure disorder with multiple seizures per month presenting with left rib pain. Patient states that he had a seizure today. He fell backward, hit the windowsill. No loss of consciousness at that time. Patient did not hit his head. Has been complaining of severe posterior lateral chest pain since that time. History was obtained via conversation with patient and significant other. On arrival, patient hemodynamically stable, alert, oriented x4, appropriate, GCS 15, moving all extremities spontaneously, pupils equal and reactive to light. Full physical exam performed and significant for well-appearing male in no acute distress. Intermittently wincing in pain. Left posterior lateral chest wall not outwardly traumatic, but tender to palpation. Bilateral breath sounds. Patient is mildly tachycardic. Normotensive.. Differential includes fracture, sprain, strain, pneumothorax, among others. Patient was given Toradol IM 15 mg for symptomatic management and correction of underlying abnormalities. Workup independently interpreted and significant for no acute bony abnormality of the ribs on chest x-ray. No pneumothorax. See radiology read for full review of final results. Because patient at baseline without signs or symptoms of clinical decompensation, deemed appropriate for discharge. Results were relayed to patient who voiced understanding and were agreeable to outpatient management and follow up. At the time of discharge the patient was hemodynamically stable, tolerating PO, and mobilizing appropriately. Critical Care Critical Care Time Critical Care Time: No
[2023-10-25 22:56] VITALS: BP 125/72; PULSE 105; RESP 18; TEMP 36.8
== END 2023-10-25 22:59 | disposition home or self-care (01) ==
PROVIDERS: Emergency Provider Emergency Medicine; PCP Nurse Practitioner Family
DX: R07.81 Pleurodynia (principal); G40.909 Epilepsy, unspecified, not intractable, without status epilepticus; G80.9 Cerebral palsy, unspecified; K21.9 Gastro-esophageal reflux disease without esophagitis; F17.210 Nicotine dependence, cigarettes, uncomplicated
CPT/HCPCS: 71101; 96372; 99284

== ENCOUNTER 2023-11-30 17:57 | Emergency (ER) | payer MEDICAID, SELFPAY ==
[2023-11-30 18:20] VITALS: BP 133/84; PULSE 114; RESP 18; TEMP 36.5; O2SAT 99; BMI 25.4
[2023-11-30 18:31] VITALS: BP 141/80; PULSE 102; RESP 17; TEMP 36.7; O2SAT 98; BMI 25.8
[2023-11-30 18:38] VITALS: BP 141/80; PULSE 101; RESP 17; TEMP 36.7; O2SAT 98
--- NOTE | 2023-11-30 18:38 | [facility].EDGENADL ---
Discharge Plan Disposition Patient Disposition: Home, Self-Care Prescriptions Prescriptions: New lacosamide 150 mg tablet 150 mg PO BID Qty: 6 0RF Briviact 100 mg tablet 100 mg PO BID Qty: 6 0RF No Action ergocalciferol (vitamin D2) 1,250 mcg (50,000 unit) capsule 1,250 mcg PO WEEKLY Patient Comments: TAKE ONE CAPSULE BY MOUTH ONCE A WEEK Briviact 100 mg tablet 100 mg PO BID MDD 200 mg Qty: 60 5RF Rx Instructions: 100 mg p.o. twice daily methocarbamol 750 mg tablet 750 mg PO HS desvenlafaxine succinate [Pristiq] 50 mg tablet extended release 24 hr 50 mg PO DAILY levothyroxine 25 mcg tablet See Rx Instructions .ROUTE .COMPLEX Rx Instructions: TAKE ONE TABLET BY MOUTH EVERY DAY FOR hypothyroid buspirone 10 mg tablet See Rx Instructions .ROUTE .COMPLEX Rx Instructions: TAKE ONE TABLET BY MOUTH TWICE DAILY escitalopram oxalate [Lexapro] 20 mg tablet 20 mg PO DAILY aripiprazole [Abilify] 10 mg tablet 10 mg PO QHS methocarbamol 1,000 mg tablet 1,000 mg PO Q8H PRN (Reason: back spasm) Qty: 12 0RF lacosamide 150 mg tablet 150 mg PO DAILY Patient Comments: TAKE 1 TABLET BY MOUTH TWICE DAILY Referrals Follow up/Referrals: Shar Oliva APRN [Primary Care Provider] - See instructions Activity Restrictions/Add. Instructions Additional Instructions/Restrictions: Follow-up with your family doctor for further refills. Clinical Impressions Clinical Impression: Medication refill Discharge ED Provider: Sumanth Joseph General Adult HPI General Chief complaint: Recheck/Abnormal Lab/Rx Stated complaint: out of meds Time Seen by Provider: 11/30/23 18:32 Mode of Arrival: Ambulatory Source of Information: Patient Limitations: No Limitations Description of Symptoms (Recalled from ER Triage Doc. by RN): Patient states he is out of seizure meds and is unable to get a refill until Saturday presents to ED for refill to get through until he sees his PCP on saturday. Patient denies any symptoms at this time History of Present Illness HPI narrative: 27-year-old male with history of seizure disorder on Briviact and lacosamide presenting for medication refill. Unable to get medications refilled until Saturday. Unable to see his family doctor until then, family provider unable to call in medications, so came for further medication refill. No symptoms. Related Data Home Medications Medication Instructions Recorded Confirmed ergocalciferol (vitamin D2) 1,250 1,250 mcg PO WEEKLY SUPPLIMENT 05/08/21 01/30/23 mcg (50,000 unit) capsule aripiprazole 10 mg tablet (Abilify) 10 mg PO QHS MOOD 09/10/22 01/30/23 buspirone 10 mg tablet See Rx Instructions .Route 09/10/22 01/30/23 .COMPLEX MOOD escitalopram oxalate 20 mg tablet 20 mg PO DAILY MOOD 09/10/22 01/30/23 (Lexapro) levothyroxine 25 mcg tablet See Rx Instructions .Route 09/10/22 01/30/23 .COMPLEX THYROID desvenlafaxine succinate 50 mg 50 mg PO DAILY . 01/15/23 01/30/23 tablet,extended release 24 hr (Pristiq) methocarbamol 750 mg tablet 750 mg PO HS . 01/15/23 01/30/23 lacosamide 150 mg tablet 150 mg PO DAILY 11/30/23 11/30/23 Previous Rx's Medication Instructions Recorded brivaracetam 100 mg tablet 100 mg PO BID SEIZURES #60 tabs 11/20/22 (Briviact) methocarbamol 1,000 mg tablet 1,000 mg PO Q8H PRN back spasm #12 08/02/23 tabs brivaracetam 100 mg tablet 100 mg PO BID #6 tabs 11/30/23 (Briviact) lacosamide 150 mg tablet 150 mg PO BID #6 tabs 11/30/23 Allergies Allergy/AdvReac Type Severity Reaction Status Date / Time No Known Allergies Allergy Verified 11/30/23 18:24 [facility] Disclaimer: The information contained in this section may have been updated after the patient was seen, as this information can be updated by other users. Medical History Anxiety Cataracts, bilateral Depression GERD (gastroesophageal reflux disease) Migraines Seizures Surgical History History of hernia surgery Status post VNS (vagus nerve stimulator) placement Family History Other No significant family history Social History Smoking Status: Current every day smoker tobacco type: cigarettes packs per day: 1 alcohol intake: current substance use type: marijuana current occupational status: disabled Travel in the last 8 weeks: None household members: significant other housing: house number of children: 1 ROS Obtained: Yes All systems reviewed & no additional complaints except as documented Physical Exam General General appearance: alert Respiratory Respiratory exam: Absent respiratory distress Cardiovascular Cardiovascular exam: Present regular rate and normal rhythm Neurological Exam Neurological exam: Present alert, oriented X3, CN II-XII intact and normal gait; Absent motor sensory deficit Medical Decision Making Medical Records Medical records reviewed: Yes I reviewed the patient's medical records. Ayush Inquiry Pt receiving controlled substance: Yes Ayush was queried for this patient: Yes Risks and benefits of using a controlled substance: were not discussed with pt by me Vital Signs: 11/30/23 18:20 11/30/23 18:31 Temperature 97.7 F 98.1 F Temperature Source Oral Oral Pulse Rate [Right Radial] 114 H 102 H Respiratory Rate 18 17 Blood Pressure [Right Arm] 133/84 141/80 H Blood Pressure Mean [Right Arm] 100 100 Blood Pressure Source [Right Arm] Automatic Cuff Automatic Cuff Blood Pressure Position [Right Arm] Sitting 02 Sat by Pulse Oximetry 99 98 Oxygen Delivery Method Room Air Room Air Medical Decision Narrative: 27-year-old male with history of seizure disorder on Briviact and lacosamide presenting for medication refill. Unable to get medications refilled until Saturday. Unable to see his family doctor until then, family provider unable to call in medications, so came for further medication refill. No symptoms. I reviewed patient's e-prescribing Ayush. Timing makes sense for patient to have ran out of medications. 3 days of medication sent to get patient through Saturday into Saturday and given adequate time to follow-up with family provider. Because patient at baseline without signs or symptoms of clinical decompensation, deemed appropriate for discharge. Results were relayed to patient who voiced understanding and were agreeable to outpatient management and follow up. I discussed my clinical impression with patient and answered all questions. At this time, the evidence for any other entities in the differential is insufficient to warrant any further testing or ED observation. This was explained as well. Advisory was given that persistent or worsening symptoms require further evaluation. I confirmed the understanding of this discussion. Critical Care Critical Care Time Critical Care Time: No
== END 2023-11-30 18:40 | disposition home or self-care (01) ==
LOC: UTC 18:07 → ER 18:28
PROVIDERS: Emergency Provider Emergency Medicine; PCP Nurse Practitioner Family
DX: Z76.0 Encounter for issue of repeat prescription
CPT/HCPCS: 99281

== ENCOUNTER 2024-10-13 18:49 | Emergency (ER) | payer MEDICAID, SELFPAY ==
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
[2024-10-13 18:55] VITALS: BP 119/66; PULSE 91; RESP 20; TEMP 36.7; O2SAT 98; BMI 26.6
[2024-10-13] MEDS: MORPHINE 2MG/ML SYRINGE 2 MG IV (19:02)
[2024-10-13 19:30] VITALS: BP 130/82
[2024-10-13 20:00] VITALS: BP 114/64
--- NOTE | 2024-10-13 20:11 | PC.NURSE ---
Contacted [facility] regarding a consult for this patient, they are to call back.
[2024-10-13] MEDS: HYDROMORPHONE 2MG/ML SYRINGE 0.5 MG IV (20:27)
[2024-10-13 20:30] VITALS: BP 105/61; PULSE 89; O2SAT 98
--- NOTE | 2024-10-13 21:03 | PC.NURSE ---
Spoke with transfer center, EVELINE Luke speaking with them at this time.
[2024-10-13] MEDS: BACITRACIN ZINC OINT 30GM TUBE TP (21:31)
[2024-10-13 21:39] VITALS: BP 107/69; PULSE 85; RESP 16; TEMP 36.6; O2SAT 98
== END 2024-10-13 21:46 | disposition home or self-care (01) ==
PROVIDERS: Emergency Provider Emergency Medicine; PCP Nurse Practitioner Family
DX: M79.642 Pain in left hand (principal); T23.332A Burn of third degree of multiple left fingers (nail), not including thumb, initial encounter; T52.0X1A Toxic effect of petroleum products, accidental (unintentional), initial encounter; Y92.89 Other specified places as the place of occurrence of the external cause
CPT/HCPCS: 96374; 96375; 99291; J1171; J2270